=== PATIENT | male | born 1950 | race Caucasian/White ===

== ENCOUNTER 2021-11-20 19:10 | Observation (INO) ==
[2021-11-20 20:28] LABS: Basophils # 0.1 K/mcL (0.0-0.2); Basophils % 0.6 %; Eosinophils # 0.3 K/mcL (0.0-0.6); Eosinophils % 2.9 %; Hematocrit 45.6 % (37.5-50.1); Hemoglobin 15.5 g/dL (12.9-16.9); Immature Granulocytes % 0.5 % (0-4); Lymphocytes # 1.7 K/mcL (0.6-4.6); Lymphocytes % 17.1 %; Mean Corpuscular Hemoglobin 29.7 pg (28.0-33.3); Mean Corpuscular Volume 87.4 fL (83.0-100.0); Mean Platelet Volume 11.3 fL (9.4-12.4); Monocytes # 0.8 K/mcL (0.0-1.3); Neutrophils # 6.9 K/mcL (1.6-8.9); Platelet Count 196 K/mcL (140-400); Red Blood Count 5.22 M/mcL (4.19-5.50); Red Cell Distribution Width 14.3 % (11.5-14.5); Segmented Neutrophils % 70.9 %; White Blood Count 9.7 K/mcL (4.3-11.1)
[2021-11-20] MEDS ORDERED: Clindamycin 300 MG/50 ML 300 MG/50 ML IV.SOLN IVPB ONE (20:32)
[2021-11-20 20:35] LABS: INR 1.3; Prothrombin Time 14.9 Seconds (9.4-12.1)
[2021-11-20 20:36] LABS: Alanine Aminotransferase 21 Units/L (7-52); Albumin 4.2 g/dL (3.5-5.7); Albumin/Globulin Ratio 1.6 (1.1-2.2); Alkaline Phosphatase 73 Units/L (34-104); Aspartate Amino Transferase 17 Units/L (13-39); BUN/Creatinine Ratio 15 (6-26); Bilirubin,Total 1.1 mg/dL (0.3-1.0); Blood Urea Nitrogen 16 mg/dL (8-23); Calcium 10.2 mg/dL (8.6-10.3); Carbon Dioxide 26 mEq/L (23-29); Chloride 103 mEq/L (98-107); Globulin 2.7 g/dL (2.4-3.5); Glucose 132 mg/dL (70-105); Osmolality,Calculated 289 (280-300); Potassium 3.6 mEq/L (3.5-5.1); Sodium 138 mEq/L (136-145); Total Protein 6.9 g/dL (6.4-8.9); eGFR For African Americans > 60 (> 60); eGFR For Non-African Americans > 60 (> 60)
[2021-11-20 20:37] LABS: Activated Partial Thrombo Time 39.2 Seconds (26.0-36.0)
[2021-11-20] MEDS ORDERED: Isovue-370 500 ML BOTTLE IVP ONE (21:57)
[2021-11-20] MEDS ORDERED: Melatonin 3 MG TABLET PO PRN (22:14)
[2021-11-20] MEDS ORDERED: Naloxone 0.4 MG/ML INJ IVP PRN (22:14)
[2021-11-20 23:09] LABS: C-Reactive Protein 14 mg/L (Less than 10)
[2021-11-21] MEDS: Piperacillin/Tazobactam 3.375 GM in 0.9 % Sodium Chloride Mini Bag 100 ML IVPB SCH ×3 (00:30→16:42)
[2021-11-21 02:27] LABS: Basophils # 0.1 K/mcL (0.0-0.2); Basophils % 0.7 %; Eosinophils # 0.3 K/mcL (0.0-0.6); Eosinophils % 3.8 %; Hematocrit 41.7 % (37.5-50.1); Hemoglobin 14.1 g/dL (12.9-16.9); Immature Granulocytes % 0.5 % (0-4); Lymphocytes # 1.8 K/mcL (0.6-4.6); Lymphocytes % 20.4 %; Mean Corpuscular HGB Conc 33.8 g/dL (31.6-35.5); Mean Corpuscular Hemoglobin 29.9 pg (28.0-33.3); Mean Corpuscular Volume 88.3 fL (83.0-100.0); Mean Platelet Volume 11.2 fL (9.4-12.4); Monocytes % 11.4 %; Neutrophils # 5.5 K/mcL (1.6-8.9); Platelet Count 180 K/mcL (140-400); Red Blood Count 4.72 M/mcL (4.19-5.50); Red Cell Distribution Width 14.4 % (11.5-14.5); Segmented Neutrophils % 63.2 %; White Blood Count 8.7 K/mcL (4.3-11.1)
[2021-11-21 02:37] LABS: BUN/Creatinine Ratio 13 (6-26); Blood Urea Nitrogen 14 mg/dL (8-23); Calcium 9.1 mg/dL (8.6-10.3); Carbon Dioxide 26 mEq/L (23-29); Chloride 103 mEq/L (98-107); Glucose 80 mg/dL (70-105); Magnesium 2.2 mg/dL (1.6-2.6); Osmolality,Calculated 287 (280-300); Phosphorous 3.5 mg/dL (2.7-4.5); Potassium 3.3 mEq/L (3.5-5.1); Sodium 139 mEq/L (136-145); eGFR For African Americans > 60 (> 60); eGFR For Non-African Americans > 60 (> 60)
[2021-11-21] MEDS: Vancomycin 1,750 MG/517.5 ML IV.SOLN IVPB SCH (04:24)
[2021-11-21] MEDS: lisinopriL 20 MG TABLET PO SCH (08:38)
[2021-11-21] MEDS: *HR* Rivaroxaban 10 MG TABLET PO SCH (08:38)
[2021-11-21] MEDS: Artificial Tears SOLN 15 ML BOTTLE OP SCH ×2 (12:37→22:21)
[2021-11-22] MEDS: Piperacillin/Tazobactam 3.375 GM in 0.9 % Sodium Chloride Mini Bag 100 ML IVPB SCH ×4 (00:50→23:54)
[2021-11-22] MEDS: Vancomycin 1,750 MG/517.5 ML IV.SOLN IVPB SCH (03:25)
[2021-11-22] MEDS ORDERED: Furosemide 20 MG TABLET PO PRN (07:40)
[2021-11-22] MEDS: Artificial Tears SOLN 15 ML BOTTLE OP SCH ×2 (07:51→21:41)
[2021-11-22] MEDS: lisinopriL 20 MG TABLET PO SCH (07:52)
[2021-11-22] MEDS: *HR* Rivaroxaban 10 MG TABLET PO SCH (07:52)
[2021-11-23 03:35] LABS: Hematocrit 40.6 % (37.5-50.1); Hemoglobin 13.3 g/dL (12.9-16.9); Mean Corpuscular HGB Conc 32.8 g/dL (31.6-35.5); Mean Corpuscular Hemoglobin 29.7 pg (28.0-33.3); Mean Corpuscular Volume 90.6 fL (83.0-100.0); Mean Platelet Volume 11.4 fL (9.4-12.4); Platelet Count 169 K/mcL (140-400); Red Blood Count 4.48 M/mcL (4.19-5.50); Red Cell Distribution Width 14.4 % (11.5-14.5); White Blood Count 6.4 K/mcL (4.3-11.1)
[2021-11-23 03:57] LABS: BUN/Creatinine Ratio 15 (6-26); Blood Urea Nitrogen 15 mg/dL (8-23); Calcium 8.7 mg/dL (8.6-10.3); Carbon Dioxide 25 mEq/L (23-29); Chloride 107 mEq/L (98-107); Glucose 127 mg/dL (70-105); Magnesium 1.9 mg/dL (1.6-2.6); Osmolality,Calculated 290 (280-300); Potassium 3.7 mEq/L (3.5-5.1); Sodium 139 mEq/L (136-145); eGFR For African Americans > 60 (> 60); eGFR For Non-African Americans > 60 (> 60)
[2021-11-23] MEDS: Vancomycin 1,750 MG/517.5 ML IV.SOLN IVPB SCH (04:00)
[2021-11-23] MEDS: Piperacillin/Tazobactam 3.375 GM in 0.9 % Sodium Chloride Mini Bag 100 ML IVPB SCH ×3 (09:02→23:26)
[2021-11-23] MEDS: *HR* Rivaroxaban 10 MG TABLET PO SCH (09:05)
[2021-11-23] MEDS: lisinopriL 20 MG TABLET PO SCH (09:06)
[2021-11-23] MEDS: Artificial Tears SOLN 15 ML BOTTLE OP SCH ×2 (09:08→21:14)
[2021-11-24 02:47] LABS: BUN/Creatinine Ratio 15 (6-26); Blood Urea Nitrogen 16 mg/dL (8-23); Calcium 8.8 mg/dL (8.6-10.3); Carbon Dioxide 25 mEq/L (23-29); Chloride 110 mEq/L (98-107); Glucose 109 mg/dL (70-105); Osmolality,Calculated 292 (280-300); Potassium 4.3 mEq/L (3.5-5.1); Sodium 140 mEq/L (136-145); eGFR For African Americans > 60 (> 60); eGFR For Non-African Americans > 60 (> 60)
[2021-11-24] MEDS: Vancomycin 1,750 MG/517.5 ML IV.SOLN IVPB SCH (03:40)
[2021-11-24 06:47] VITALS: PULSE 59; TEMP 97.7
[2021-11-24] MEDS: Piperacillin/Tazobactam 3.375 GM in 0.9 % Sodium Chloride Mini Bag 100 ML IVPB SCH (09:13)
[2021-11-24] MEDS: *HR* Rivaroxaban 10 MG TABLET PO SCH (09:14)
[2021-11-24] MEDS: lisinopriL 20 MG TABLET PO SCH (09:15)
[2021-11-24] MEDS: Artificial Tears SOLN 15 ML BOTTLE OP SCH (09:16)
[2021-11-24 11:12] VITALS: BP 123/61; O2SAT 95
[2021-11-24] MEDS ORDERED: Vancomycin 1,250 MG/262.5 ML IV.SOLN IVPB SCH (15:00)
== END 2021-11-24 14:27 | disposition home health service (06) ==
LOC: 3BNU 19:10 → EMEROOARM 19:10 → SUATTDRO 22:35 → 3BNU 22:55
PROVIDERS: ADMIT Internal Medicine; ATTEND Internal Medicine